=== PATIENT | female | born 1980 | race Two or more races ===

== ENCOUNTER 2021-04-01 13:07 | Outpatient (CLI) | payer OTHER ==
[2021-04-01] MEDS ORDERED: PRENATAL TABLE1 EAC1 PO (14:09)
== END 2021-04-02 16:00 | disposition home or self-care (01) ==
LOC: OBS/DEL 13:07
PROVIDERS: ATTEND Obstetrics & Gynecology
DX: O46.8X3 Other antepartum hemorrhage, third trimester (principal); O26.853 Spotting complicating pregnancy, third trimester; O35.3XX0 Maternal care for (suspected) damage to fetus from viral disease in mother, not applicable or unspecified; O35.0XX0 Maternal care for (suspected) central nervous system malformation in fetus, not applicable or unspecified; Z3A.29 29 weeks gestation of pregnancy

== ENCOUNTER 2021-05-08 14:45 | Inpatient (IN) | payer OTHER ==
[~2021-05-08] VITALS: Ht 162.6 cm; Wt 3.2 kg
[~2021-05-08 14:45] MED LIST: PRENATAL TABLE1 EAC1 PO
== END 2021-06-07 15:19 | disposition home or self-care (01) | DRG 788 ==
LOC: OB/GYN 06-05 11:47 → LDR 06-05 11:47 → OB/GYN 06-05 11:47 → O/R 06-05 13:21 → OB/GYN 06-05 14:26
PROVIDERS: ADMIT Obstetrics & Gynecology; ATTEND Obstetrics & Gynecology
PROC: 4A1HXCZ Monitoring of Products of Conception, Cardiac Rate, External Approach (ICD-10-PCS; 2021-06-05)
PROC: 10D00Z1 Extraction of Products of Conception, Low, Open Approach (ICD-10-PCS; principal; 2021-06-05 11:15)
DX: O45.8X3 Other premature separation of placenta, third trimester (principal); O99.820 Streptococcus B carrier state complicating pregnancy; Z3A.38 38 weeks gestation of pregnancy; Z20.822 Contact with and (suspected) exposure to COVID-19; Z37.0 Single live birth